=== PATIENT | female | born 1990 | race Caucasian/White ===

== ENCOUNTER 2025-04-16 06:15 | Day surgery (SDC) | payer BC ==
[2025-04-13 10:37] LABS: Urine Protein, UAD Negative (Negative)
[2025-04-13 10:40] LABS: Hemoglobin 12.9 g/dL (12.2-16.2); Mean Corpuscular Hemoglobin 23.5 pg (28.0-32.0); Nucleated Red Blood Cells % 0.0 %
[2025-04-13 10:42] LABS: Hematocrit 39.2 % (36.0-46.0); Mean Corpuscular Volume 71.3 fL (80.0-100.0)
[2025-04-13 11:01] LABS: Alanine Aminotransferase 17 U/L (7-40); Albumin 4.2 g/dL (3.2-4.8); Alkaline Phosphatase 47 U/L (46-116); Anion Gap 9 (5-15); BUN/Creatinine Ratio 10.3 (10.0-20.0); Calcium 9.0 mg/dL (8.7-10.4); Carbon Dioxide 25 mmol/L (20-31); Glucose 94 mg/dL (74-106); Potassium 4.0 mmol/L (3.5-5.1); Sodium 142 mmol/L (136-145); Total Protein 6.4 g/dL (5.7-8.2)
[2025-04-13 11:02] LABS: Bilirubin, Total 0.5 mg/dL (0.2-1.0); Chloride 108 mmol/L (98-107)
[2025-04-13 11:03] LABS: Blood Urea Nitrogen 7 mg/dL (9-23)
[2025-04-13 11:17] LABS: INR 0.95 (0.9-1.15); Partial Thromboplastin Time 26.9 SEC (24.5-34.5); Prothrombin Time 10.1 sec (9.3-11.8)
--- NOTE | 2025-04-13 13:07 | DVHHP ---
ADMIT DATE: 04/16/2025 CHIEF COMPLAINT: Desires tubal sterilization. HISTORY OF PRESENT ILLNESS: The patient is a 10, para 4 female, admitted for laparoscopic placement of Filshie clips. She does not want any other form of contraception. Risks, complications, and failure rate discussed with the patient. Options reviewed. All questions answered. Possibility of exploratory laparotomy discussed with the patient. The patient wishes to proceed with procedure. PAST MEDICAL HISTORY: None. PAST SURGICAL HISTORY: D and C. SOCIAL HISTORY: None. FAMILY HISTORY: None. 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 ALLERGIES: No known drug allergies. REVIEW OF SYSTEMS: Consistent with HPI. PHYSICAL EXAMINATION: VITAL SIGNS: Stable, afebrile. HEENT: Within normal limits. CARDIOVASCULAR: Regular rate and rhythm. LUNGS: Clear to auscultation. BREASTS: Symmetrical, no masses. ABDOMEN: Soft, nontender, obese. PELVIC: External genitalia within normal limits. Vagina normal. Cervix grossly normal appearing. Uterus 8-week size. Adnexa nonpalpable. EXTREMITIES: No clubbing, cyanosis, or edema. IMPRESSION: Multiparity, desires tubal sterilization. PLAN: Laparoscopic placement of Filshie clips. Informed consent obtained. Risks and complications of surgery including infection, bleeding, and perforation of the uterus, risks of anesthesia discussed with the patient. Options reviewed. All questions answered. Failure rate with this procedure discussed with the patient. The patient fully understands. All questions answered to the satisfaction of the patient. The patient wishes to proceed with planned procedure. DO LILLY Contreras TID: [id number] RECEIPT: [id number]
[~2025-04-16] VITALS: Ht 162.6 cm; Wt 87.1 kg
[2025-04-16] MEDS: ceFAZolin 2 GM/D5W50ml 50 ML IV ONE (06:27)
[2025-04-16] MEDS: SUCCINYLCHOLINE CHLORIDE 20 MG/ML 10ML VIAL IV ONE (06:55)
[2025-04-16] MEDS ORDERED: HYDROmorphone HCL 2 MG/ML VL/or syr ONE (06:57)
[2025-04-16] MEDS ORDERED: fentaNYL CITRATE 100 MCG/2 ML VL ONE (06:57)
[2025-04-16] MEDS ORDERED: PROPOFOL 10 MG/ML 20 ML IV ONE (06:58)
[2025-04-16] MEDS ORDERED: HYDR-4072 PO (07:13)
[2025-04-16] MEDS ORDERED: IBUP-1456 PO (07:13)
[2025-04-16] MEDS ORDERED: ZOFR4T PO (07:13)
[2025-04-16] MEDS ORDERED: LACTATED RINGER'S 1,000 ML IV SCH (07:15)
[2025-04-16] MEDS ORDERED: ROCURONIUM 10MG/ML 10ML VIAL IV ONE (07:28)
[2025-04-16] MEDS ORDERED: ONDANSETRON HCL 4 MG/2 ML VIAL ONE (07:31)
[2025-04-16] MEDS: LIDOCAINE W/ EPINEPHRINE 1% 20ML VIAL ONE (08:01)
[2025-04-16] MEDS: BUPIVACAINE 0.5% P/F INJ 10 ML VIAL ONE (08:01)
[2025-04-16] MEDS ORDERED: SUGAMMADEX 200mg/2ml Vial (100MG/ML) IV ONE (08:03)
[2025-04-16 08:14] VITALS: PULSE 112; RESP 14; O2SAT 95
[2025-04-16] MEDS ORDERED: ONDANSETRON HCL 4 MG/2 ML VIAL IV PRN (08:30)
[2025-04-16] MEDS ORDERED: ACETAMINOPHEN IV 1000 MG/100ML (10MG/ML) IV PRN (08:30)
[2025-04-16] MEDS: HYDROmorphone HCL 2 MG/ML VL/or syr IV PRN (08:46)
[2025-04-16] MEDS: HYDROmorphone HCL 2 MG/ML VL/or syr ONE (08:46)
[2025-04-16 09:29] VITALS: BP 125/66; PULSE 88; RESP 14; O2SAT 95
[2025-04-16] MEDS: ONDANSETRON HCL 4 MG/2 ML VIAL IV PRN (09:55)
[2025-04-16 10:14] VITALS: TEMP 97.6
--- NOTE | 2025-04-16 11:53 | DVHOP2 ---
Operative Report DATE OF OPERATION: 04/16/25 PREOPERATIVE DIAGNOSES: 1. Desires elective tubal sterilization. 2. morbid obesity POSTOPERATIVE DIAGNOSES: 1. Desires elective tubal sterilization. 2. same SURGEON: Seble Tinsley D.O./foster /elvin ANESTHESIOLOGIST: joseline TYPE OF ANESTHESIA : General. CONSENT: The patient was informed of the risks and benefits of the procedure. The patient was informed of the risks and benefits of the procedure. These include but are not limited to , complications of anesthesia, postoperative infection, incomplete relief of symptoms, recurrence of symptoms, damage to blood vessels, nerves and tendons, deep venous thrombosis, pulmonary embolism and possible need for repeat surgery in the future. FINDINGS: Cervix is grossly normal appearing. Uterus is 10 weeks' size. Adnexa nonpalpable. COMPLICATIONS: None. BLOOD PRODUCTS USED: None. PROCEDURES: Laparoscopic placement of Filschi Clips to bilateral tubes PROCEDURE IN DETAIL: The patient was taken to the operating room where she was placed under general anesthesia. The patient was then prepped and draped in the usual sterile manner in the dorsal lithotomy position. The bladder was emptied using a straight catheter. Examination under anesthesia revealed the above findings. A weighted speculum was placed in the vagina. The anterior lip of the cervix was grasped using single-tooth tenaculum. Cervix was dilated. Uterus sounded to 10 cm. HUMI catheter was placed. Attention was then turned to the abdomen where a Veress needle was introduced. Abdomen was distended with 3L of CO2 gas. Using Visiport, abdomen was entered under direct visualization. Survey of abdominal cavity revealed normal finding. A 8 mm trocar was placed into the suprapubic region. Filshie clip was then loaded on the right tube as well as the left. No bleeding was noted. All the instruments were removed from the abdomen and pelvis. CO2 gas released. Incisional ports were closed using #4-0 Vicryl and kajal for the larger port. The patient tolerated the procedure well. All instruments were removed from the patient's cervix. The patient was taken to the recovery room in a stable condition. ESTIMATED BLOOD LOSS: 20 mL Visit Coding OBGYN Date of Service: Apr 16, 2025 Billing Provider: SEBLE TINSLEY DO PARA PROFESSIONAL Common Visit Codes: [id number] OBS CARE (HIGH) PARA PROFESSIONAL Procedure Codes: 97901-NPD.SURG:ON OVIDUCT/OVARY SEBLE TINSLEY DO Apr 16, 2025 11:53
--- NOTE | 2025-04-16 11:56 | POSTOP ---
Post-Operative Note Post-Operative Note Preop Diagnosis desires tubal ligation,morbid obesity Postop Diagnosis: same Operation performed laparoscopic placement of filschie clips Specimen none Anesthesia: General Anesthesiologist: roosevelten Blood Loss(fluid mgmt) 20ml Surgeon Seble Tinsley Photographic Hand Developer foster/elvin Implant filschie Complications & Mgmt none Date 04/16/25 Time 11:54 Visit Coding OBGYN Date of Service: Apr 16, 2025 Billing Provider: SEBLE TINSLEY DO EDITORIAL SPECIALIST Common Visit Codes: 64881-PICWOST OBS CARE (HIGH) EDITORIAL SPECIALIST Procedure Codes: 81717-XLL.SURG:W/REM ADNEXAL STRUCT, 81913-QEF.SURG:ON OVIDUCT/OVARY SEBLE TINSLEY DO Apr 16, 2025 11:56
--- NOTE | 2025-04-16 11:57 | DVHDS2 ---
Physician Discharge Progress N Final Diagnosis: s/p tubal ligation Operations or Procedures: Operations or Procedures laparoscopic placement of filschie clips Condition on Discharge: Good Disposition: Home Discharge Instructions: Diet: Regular Activity: Light activity Follow Up/Referral: next wk as sched Medications: joel cline Follow Up Care: Specialist: 1w Discharge Statement: "Patient was advised to return to the ER or call 911 if any headaches, dizziness, shortness of breath, chest pain, abdominal pain, bleeding, fevers, or worsening of medical condition. Patient was counseled about treatment plan, medications, possible side effects, patientverbalized understanding. All questions were answered to the best of my ability. This discharge took greater then 30 minutes in planning, reviewing documentation, counseling the patient, and discussing with other team members." Visit Coding OBGYN Date of Service: Apr 16, 2025 Billing Provider: NICOLLE ROBLES DO SUPERVISOR INVENTORY MERCHANDISING Common Visit Codes: 87454-[id number] OBS CARE (HIGH) SUPERVISOR INVENTORY MERCHANDISING Procedure Codes: 06255-HPT.SURG:W/REM ADNEXAL STRUCT, 87021-BPO.SURG:ON OVIDUCT/OVARY NICOLLE ROBLES DO Apr 16, 2025 11:57
== END 2025-04-16 10:14 | disposition home or self-care (01) ==
LOC: SUR 06:15
PROVIDERS: ATTEND Obstetrics & Gynecology
DX: Z30.2 Encounter for sterilization (principal); E66.01 Morbid (severe) obesity due to excess calories; Z98.890 Other specified postprocedural states; Z68.33 Body mass index [BMI] 33.0-33.9, adult
CPT/HCPCS: 36415; 58671; 80053; 81001; 81025; 85025; 85610; 85730; 86850; 86900; 86901; A4264; J0330; J0690; J1100; J1171; J2405; J2704; J3010; J3490